=== PATIENT | male | born 1970 | race Caucasian/White ===

== ENCOUNTER 2024-02-02 17:27 | Emergency (ER) | payer SELFPAY ==
[2024-02-02 17:46] VITALS: BP 137/93; PULSE 94; RESP 16; TEMP 98.3; BMI 24.5
[2024-02-02] MEDS ORDERED: MAG HYDROX/AL HYDROX/SIMETH 30 ML UNIT-DOSE CUP ONE (19:23)
[2024-02-02] MEDS: MAG HYDROX/AL HYDROX/SIMETH 30 ML UNIT-DOSE CUP PO ONE (19:32)
[2024-02-02] MEDS ORDERED: FAMOTIDINE 20 MG/50 ML IVPB 20 MG/50 ML MG IVPB ONE (19:41)
[2024-02-02] MEDS ORDERED: ACETAMINOPHEN INJECTION 100 ML IVPB ONE (19:41)
[2024-02-02 19:48] LABS: BASO % 0.7 % (0-2.0); EOS % 0.4 % (0-4.5); HEMATOCRIT 42.4 % (35.4-49); HEMOGLOBIN 14.7 GM/dL (11.7-16.9); LYMPH % 26.3 % (8-40); MCH 30.3 pg (25.7-33.7); MCHC 34.6 g/dl (32.0-35.9); MEAN CELL VOLUME 87.6 fl (80-96); MEAN PLT VOLUME 7.4 fl (7.5-11.1); MONO % 7.6 % (3.8-10.2); PLATELET COUNT 326 10^3/uL (134-434); RBC 4.84 M/mm3 (4.00-5.60); RDW 13.4 % (11.9-15.9); WHITE BLOOD COUNT 10.2 K/mm3 (4.0-10.0)
[2024-02-02] MEDS: ACETAMINOPHEN 1000 MG/100 ML BAG IVPB ONE (19:49)
[2024-02-02 19:55] LABS: INR 1.12 (0.83-1.09); PROTHROMBIN TIME (PATIENT) 12.6 SEC (9.7-13.0)
[2024-02-02 19:57] LABS: PH,URINE 6.5 (5.0-8.0); URINE APPEARANCE CLEAR; URINE BILIRUBIN NEGATIVE (NEGATIVE); URINE COLOR YELLOW; URINE GLUCOSE (UA) NEGATIVE (NEGATIVE); URINE KETONE NEGATIVE (NEGATIVE); URINE LEUK ESTERASE NEGATIVE (NEGATIVE); URINE NITRITE NEGATIVE (NEGATIVE); URINE PROTEIN TRACE (NEGATIVE)
[2024-02-02 19:58] LABS: ACTIVATED PTT 26.5 SECONDS (25.2-36.5)
[2024-02-02 20:03] LABS: POTASSIUM 3.9 mmol/L (3.5-5.1)
[2024-02-02 20:06] LABS: ALBUMIN 3.9 g/dl (3.4-5.0)
[2024-02-02 20:09] LABS: CREATININE 0.8 mg/dL (0.55-1.3)
[2024-02-02 20:10] LABS: BILIRUBIN,TOTAL 0.6 mg/dL (0.2-1)
[2024-02-02] MEDS: FAMOTIDINE 20 MG/50 ML IVPB 20 MG/50 ML MG IVPB ONE (20:23)
== END 2024-02-02 21:07 | disposition home or self-care (01) ==
LOC: JER 17:27
PROC: 3E033GC Introduction of Other Therapeutic Substance into Peripheral Vein, Percutaneous Approach (ICD-10-PCS; principal; 2024-02-02)
PROC: 3E033NZ Introduction of Analgesics, Hypnotics, Sedatives into Peripheral Vein, Percutaneous Approach (ICD-10-PCS; 2024-02-02)
DX: K62.89 Other specified diseases of anus and rectum (principal); R35.0 Frequency of micturition
CPT/HCPCS: 0241U-QW; 36415; 80053; 81003; 85025; 85610; 85730; 87086; 99284-25; J0131